=== PATIENT | female | born 1940 | race Caucasian/White ===

== ENCOUNTER 2023-10-17 08:47 | Day surgery (SDC) | payer BC ==
[~2023-10-17] VITALS: Ht 154.9 cm; Wt 81.6 kg
[2023-10-17] MEDS ORDERED: CEFAZOLIN SOD 2 GM in D5W 50 ML IV ONE (09:15)
[2023-10-17] MEDS ORDERED: fentaNYL CITRATE/PF 100 MCG/2 ML AMP ONE (12:10)
[2023-10-17] MEDS ORDERED: MIDAZOLAM HCL 2 MG/2 ML VIAL (VERSED) ONE (12:10)
[2023-10-17] MEDS ORDERED: DEXAMETHASONE SOD PHOSPHATE 4 MG/ML VIAL ONE (12:20)
[2023-10-17] MEDS ORDERED: HYDROmorphone 1 MG/ML INJ. CARTRIDGE IVP PRN ×3 (13:15)
[2023-10-17] MEDS ORDERED: ONDANSETRON HCL 4 MG/2 ML VIAL IVP PRN (13:15)
[2023-10-17] MEDS ORDERED: NALOXONE HCL 0.4 MG/ML AMP (NARCAN) IVP PRN (13:15)
[2023-10-17] MEDS ORDERED: hydrALAZINE HCL 20 MG/ML VIAL IV PRN (13:15)
[2023-10-17] MEDS ORDERED: HYDROcodone/ACETAMIN 5-325 MG TAB (NORCO/ VICODIN) PO PRN (14:00)
[2023-10-17] MEDS ORDERED: D5/0.45 NS 1,000 ML IV SCH (14:00)
[2023-10-17 14:50] VITALS: O2SAT 99
[2023-10-17] MEDS ORDERED: HYDROmorphone 1 MG/ML INJ. CARTRIDGE ONE (15:04)
[2023-10-17 17:10] VITALS: BP_SYST 135; PULSE 96; RESP 22
== END 2023-10-17 16:44 | disposition home or self-care (01) ==
LOC: SDS 08:47 → SMU 08:47 → SDS 16:44
PROVIDERS: ATTEND Colon & Rectal Surgery
DX: K42.0 Umbilical hernia with obstruction, without gangrene (principal); K43.6 Other and unspecified ventral hernia with obstruction, without gangrene; I10 Essential (primary) hypertension; E78.5 Hyperlipidemia, unspecified; M19.90 Unspecified osteoarthritis, unspecified site; Z88.3 Allergy status to other anti-infective agents; Z87.891 Personal history of nicotine dependence; Z90.710 Acquired absence of both cervix and uterus; Z98.890 Other specified postprocedural states
CPT/HCPCS: 87081; 49594; 82948; 88302; J3490; J0690; J1100; J1885; J3465; J2405; J2704; J3010; J1170; J7060; J7120; C1781